=== PATIENT | male | born 1990 | race Caucasian/White ===

== ENCOUNTER 2019-09-17 14:26 | Emergency (ER) | payer OTHER ==
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
== END 2019-09-17 17:00 | disposition home or self-care (01) ==
LOC: MW.ED 14:26
DX: S00.03XA Contusion of scalp, initial encounter (principal); V58.5XXA Driver of pick-up truck or van injured in noncollision transport accident in traffic accident, initial encounter
CPT/HCPCS: 70450; 70450-26; 72125; 72125-26; 99283-25